=== PATIENT | female | born 1960 | race Caucasian/White ===

== ENCOUNTER → 2017-02-20 | Outpatient (REF) | payer OTHER ==
[~2017-02-20] MED LIST: ALEN70TA39; DULO1CAP3; ROBA500T PO; SYNT100T; VITA100067 PO; ZOFR4TAB3 PO; [UNRECOGNIZED DRUG - CODE]; [UNRECOGNIZED DRUG - OTHER] PO
== END ==
LOC: M LAB REF 16:43
PROVIDERS: ATTEND Nurse Practitioner Adult Health
DX: R10.11 Right upper quadrant pain (principal); R31.29 Other microscopic hematuria

== ENCOUNTER 2017-02-26 10:05 | Emergency (ER) | payer BC, OTHER ==
[~2017-02-26] VITALS: Ht 165.1 cm; Wt 56.4 kg
[2017-02-26 10:05] VITALS: BP 133/75
[2017-02-26] MEDS ORDERED: [UNRECOGNIZED DRUG - OTHER] PO (10:23)
[2017-02-26] MEDS ORDERED: VITA100067 PO (10:23)
[2017-02-26] MEDS ORDERED: ALEN70TA39 (10:23)
[2017-02-26] MEDS ORDERED: DULO1CAP3 (10:23)
[2017-02-26] MEDS ORDERED: SYNT100T (10:23)
[2017-02-26] MEDS ORDERED: [UNRECOGNIZED DRUG - CODE] (10:23)
[2017-02-26] MEDS ORDERED: ROBA500T PO (11:20)
[2017-02-26] MEDS ORDERED: ZOFR4TAB3 PO (11:20)
== END 2017-02-26 11:26 | disposition home or self-care (01) ==
LOC: M ED 10:05
DX: K58.0 Irritable bowel syndrome with diarrhea (principal); S29.012A Strain of muscle and tendon of back wall of thorax, initial encounter; X58.XXXA Exposure to other specified factors, initial encounter; Y92.89 Other specified places as the place of occurrence of the external cause; Y93.89 Activity, other specified; Y99.8 Other external cause status; E03.9 Hypothyroidism, unspecified; F17.210 Nicotine dependence, cigarettes, uncomplicated; Z87.442 Personal history of urinary calculi

== ENCOUNTER → 2018-03-08 | Outpatient (REF) | payer BC | LOC: M LAB REF 13:29 | DX: E03.9 Hypothyroidism, unspecified (principal); E83.52 Hypercalcemia | CPT/HCPCS: 83970 ==

== ENCOUNTER → 2018-04-25 | Outpatient (CLI) | payer BC | LOC: M WHC 13:43 | DX: Z13.820 Encounter for screening for osteoporosis (principal); Z12.31 Encounter for screening mammogram for malignant neoplasm of breast; R92.1 Mammographic calcification found on diagnostic imaging of breast | CPT/HCPCS: 77067 ==

== ENCOUNTER → 2019-06-02 | Outpatient (CLI) | payer BC, OTHER ==
[~2019-06-02] MED LIST changes: -ALEN70TA39; +ALEN70TA74; -DULO1CAP3; +DULO1CAP6; +ZOFR4TAB14 PO; -ZOFR4TAB3 PO
--- NOTE | 2019-06-02 09:25 | REPMRS ---
Patient History The patient states she has not had a clinical breast exam in over a year. Family history of prostate cancer at age 50 or over in father. No Hormone Replacement Therapy Digital Woman Screen Mammo: June 02, 2019 - Exam #: [id number] Bilateral CC and MLO view(s) were taken. Technologist: Missy Beckett, Technologist Prior study comparison: April 25, 2018, bilateral digital woman screen mammo performed at [facility]. March 23, 2017, digital woman screen mammo performed at [facility]. March 13, 2016, digital woman screen mammo performed at [facility]. FINDINGS: The breast tissue is heterogeneously dense. This may lower the sensitivity of mammography. There is a stable nodular opacity projecting in the upper outer quadrant on the left unchanged from multiple prior studies. There is a moderate amount of heterogeneously dense fibroglandular tissue which is fairly symmetric. There is no interval development of dominant mass, architectural distortion, or grouped microcalcification typical of malignancy. There has been no change in the appearance of the mammogram from the prior studies. 3-D tomosynthesis shows no additional findings. Assessment: BI-RADS/ACR category 2 mammogram. Benign Findings. Recommendation Routine screening mammogram of both breasts in 1 year (for women over age 40). This patient's Lifetime Breast Cancer RIsk is estimated at 7.5 %. This mammogram was interpreted with the aid of an FDA-approved computer-aided dectection system. Electronically Signed By: Ar Roca MD 06/02/19 0915
== END ==
LOC: M WHC 08:35
PROVIDERS: ATTEND Nurse Practitioner Adult Health
DX: Z12.31 Encounter for screening mammogram for malignant neoplasm of breast (principal); R92.2 Inconclusive mammogram; N63.0 Unspecified lump in unspecified breast

== ENCOUNTER → 2019-07-28 | Outpatient (CLI) | payer BC, OTHER ==
--- NOTE | 2019-08-20 14:54 | DEXA ---
AP SPINE L1 - L4 0.960 -1.9 -0.6 LT FEMUR TOTAL 0.964 -0.3 0.6 LT NECK 0.873 -1.2 0.1 RT FEMUR TOTAL 0.897 -0.9 0.1 RT NECK 0.824 -1.5 -0.3 TOTAL BODY TOTAL OTHER COMMENTS: There is low bone density of the spine and hips. The density of the spine has increased 5.5% since the initial exam on 07/20/2009. The spine density has increased 3.4% since the most recent exam on 04/25/2018. The density of the left hip has decreased 0.3% since the initial exam on 07/20/2009. The density of the left hip has increased 1.3% since the most recent exam on 04/25/2018. The density of the right hip has decreased 0.6% since the initial exam on 07/20/2009. The density of the right hip has increased 0.0% since the most recent exam on 04/25/2018. FOLLOW-UP: Recommendation for the next bone density exam: 2 years. BELLE
== END ==
LOC: M WHC 13:42
PROVIDERS: ATTEND Nurse Practitioner Adult Health
DX: M85.851 Other specified disorders of bone density and structure, right thigh (principal); M85.852 Other specified disorders of bone density and structure, left thigh; M85.88 Other specified disorders of bone density and structure, other site

== ENCOUNTER → 2020-10-28 | Outpatient (CLI) | payer BC ==
[~2020-10-28] MED LIST changes: -ALEN70TA74; +ALEN70TA82
--- NOTE | 2020-10-28 11:11 | REPMRS ---
Patient History The patient states she had a clinical breast exam in August 2020. Family history of prostate cancer at age 50 or over in father. No Hormone Replacement Therapy No breast complaints today Patient signed the MRS sheet 1st covid vaccine 08/15/20-right arm-Moderna 2nd covid vaccine 09/14/20-right arm Priors on PACS Patient Identification Verified Digital Woman Screen Mammo: October 28, 2020 - Exam #: [id number] Bilateral CC and MLO view(s) were taken. Technologist: Komal Hearn, Technologist Prior study comparison: June 02, 2019, bilateral digital woman screen mammo performed at [facility], [place]. April 25, 2018, bilateral digital woman screen mammo performed at [facility], [place]. FINDINGS: There are scattered fibroglandular densities. Screening. Digital screening (2D) mammography was performed bilaterally in the CC and MLO projections. Additionally, breast tomosynthesis (3D mammography) was performed bilaterally in the CC and MLO projections. Todays exam was compared to the prior exams. By history, the patient has no complaints of a palpable breast abnormality or other significant breast complaints. The breasts are unchanged in size and shape. There are no prema-soft tissue densities or spiculated masses. There is no internal architectural distortion. Once again, stable benign appearing calcifications are seen.There are no suspicious prema-calcific clusters. Skin thickening or nipple retraction is not present. IMPRESSION: BI-RADS Category 2- Benign Findings. There is no evidence of malignant alteration of the breasts. Followup examination recommended in one year. The Volpara volumetric breast density category is B, there are scattered areas of fibroglandular density. This mammogram was read with the assistance of [facility],an FDA approved computer aided detection system for mammography. The lifetime Tyrer-Cuzick score is 7.2 % Negative x-ray reports should not delay surgical consultation if a dominant or clinically suspicious mass is present. Not all breast cancers can be identified by mammography. Therefore, we recommend that you continue to perform regular breast self-examination and physical examination and then promptly contact your physician of any concerns or changes. Adenosis and dense breasts may obscure an underlying neoplasm. Assessment: BI-RADS/ACR category 2 mammogram. Benign Findings. Recommendation Routine screening mammogram of both breasts in 1 year. Electronically Signed By: Ashkan Solano DO 10/28/20 [id number]
== END ==
LOC: M WHC 09:56
PROVIDERS: ATTEND Nurse Practitioner Adult Health
DX: Z12.31 Encounter for screening mammogram for malignant neoplasm of breast (principal); Z80.42 Family history of malignant neoplasm of prostate; R92.1 Mammographic calcification found on diagnostic imaging of breast

== ENCOUNTER → 2020-11-10 | Outpatient (CLI) | payer BC ==
[~2020-11-10] MED LIST changes: +CLOB0.0526 TOP; +DULO1CAP6 PO; +ROSU10TA6 PO; +SYNT125T PO; +TRET0.0540 TOP
== END ==
LOC: M LABSMTC 11:44
PROVIDERS: ATTEND Anesthesiology
DX: Z01.812 Encounter for preprocedural laboratory examination (principal); Z20.822 Contact with and (suspected) exposure to COVID-19

== ENCOUNTER 2020-11-15 12:38 | Day surgery (SDC) | payer BC, OTHER ==
[~2020-11-15] VITALS: Ht 165.1 cm; Wt 58.2 kg
[~2020-11-15 12:38] MED LIST changes: +LIDOCAINE 2% 100MG/5ML SDV (FOR ANES.) As Ordered ONE; +NS 1,000 ML IV ONE; +propofoL 200 MG/20 ML VIAL As Ordered ONE
--- NOTE | 2020-11-15 15:00 | ROOR ---
Patient Name: Marcelle Mireles Procedure Date: 11/15/2020 2:38 PM Date of : 1960 Age: 60 Room: [facility] Gender: Female Note Status: Finalized Procedure: Total Colonoscopy to Cecum + ileoscopy Indications: Screening for colorectal malignant neoplasm Providers: Aguilar Santillan MD Referring MD: Brionna Hodgson NP Requesting Provider: Medicines: Monitored Anesthesia Care Complications: No immediate complications. Procedure: Pre-Anesthesia Assessment: - The heart rate, respiratory rate, oxygen saturations, blood pressure, adequacy of pulmonary ventilation, and response to care were monitored throughout the procedure. The Colonoscope was introduced through the anus and advanced to the terminal ileum, with identification of the appendiceal orifice and IC valve. The colonoscopy was performed without difficulty. The patient tolerated the procedure well. The quality of the bowel preparation was excellent. Findings: The perianal and digital rectal examinations were normal. Non-bleeding internal hemorrhoids were found during retroflexion. The hemorrhoids were small and Grade I (internal hemorrhoids that do not prolapse). Multiple small and large-mouthed diverticula were found in the recto-sigmoid colon, sigmoid colon and descending colon. The exam was otherwise without abnormality on direct and retroflexion views. The terminal ileum appeared normal. The exam was otherwise without abnormality on direct and retroflexion views. Impression: - Non-bleeding internal hemorrhoids. - Diverticulosis in the recto-sigmoid colon, in the sigmoid colon and in the descending colon. - The examination was otherwise normal on direct and retroflexion views. - The examined portion of the ileum was normal. - The examination was otherwise normal on direct and retroflexion views. - No specimens collected. - The exam was otherwise normal to the cecum. Recommendation: - Patient has a contact number available for emergencies. The signs and symptoms of potential delayed complications were discussed with the patient. Return to normal activities tomorrow. Written discharge instructions were provided to the patient. - High fiber diet. - Discharge patient to home. - Continue present medications. - Repeat colonoscopy in 10 years for screening purposes. - Return to referring physician. - The findings and recommendations were discussed with the patient's family. Procedure Code(s): --- Professional --- 43315, Colonoscopy, flexible; diagnostic, including collection of specimen(s) by brushing or washing, when performed (separate procedure) Diagnosis Code(s): --- Professional --- Z12.11, Encounter for screening for malignant neoplasm of colon K64.0, First degree hemorrhoids K57.30, Diverticulosis of large intestine without perforation or abscess without bleeding CPT copyright 2019 [employer]. All rights reserved. The codes documented in this report are preliminary and upon death surveys coder review may be revised to meet current compliance requirements. Aguilar Santillan MD Aguilar Santillan MD 11/15/2020 3:00:18 PM Electronically signed by Aguilar Santillan MD Number of Addenda: 0 Note Initiated On: 11/15/2020 2:38 PM Estimated Blood Loss: Estimated blood loss: none.
[2020-11-15 15:17] VITALS: BP 129/85
== END 2020-11-15 15:19 | disposition home or self-care (01) ==
LOC: M OPP 12:38
PROVIDERS: ATTEND Internal Medicine Gastroenterology
DX: Z12.11 Encounter for screening for malignant neoplasm of colon (principal); K64.0 First degree hemorrhoids; K57.30 Diverticulosis of large intestine without perforation or abscess without bleeding; E78.5 Hyperlipidemia, unspecified; E03.9 Hypothyroidism, unspecified; K58.9 Irritable bowel syndrome, unspecified; F17.210 Nicotine dependence, cigarettes, uncomplicated; Z79.899 Other long term (current) drug therapy

== ENCOUNTER → 2021-11-08 | Outpatient (CLI) | payer BC, OTHER ==
[~2021-11-08] MED LIST changes: -LIDOCAINE 2% 100MG/5ML SDV (FOR ANES.) As Ordered ONE; -NS 1,000 ML IV ONE; +[UNRECOGNIZED DRUG - CODE]; -[UNRECOGNIZED DRUG - CODE]; -propofoL 200 MG/20 ML VIAL As Ordered ONE
== END ==
LOC: M WHC 07:55
PROVIDERS: ATTEND Nurse Practitioner Adult Health
DX: Z12.31 Encounter for screening mammogram for malignant neoplasm of breast (principal); M85.88 Other specified disorders of bone density and structure, other site; Z80.42 Family history of malignant neoplasm of prostate

== ENCOUNTER → 2022-11-22 | Outpatient (CLI) | payer BC, OTHER | LOC: M WHC 07:53 | PROVIDERS: ATTEND Nurse Practitioner Adult Health | DX: Z12.31 Encounter for screening mammogram for malignant neoplasm of breast (principal) ==

== ENCOUNTER → 2024-01-10 | Outpatient (CLI) | payer MEDICARE, BC ==
[~2024-01-10] MED LIST changes: +MINO1TAB; -ROSU10TA6 PO; +ROSU10TA61 PO; -[UNRECOGNIZED DRUG - CODE]
== END ==
LOC: M WHC 14:03
PROVIDERS: ATTEND Nurse Practitioner Adult Health
DX: Z12.31 Encounter for screening mammogram for malignant neoplasm of breast (principal)

== ENCOUNTER → 2024-09-23 | Outpatient (CLI) | payer MEDICARE, BC | LOC: M WUC 11:00 | PROVIDERS: ATTEND Nurse Practitioner Adult Health | DX: M11.262 Other chondrocalcinosis, left knee (principal) ==

== ENCOUNTER → 2024-09-23 | Outpatient (CLI) | payer MEDICARE, BC | LOC: M RAD 10:19 | PROVIDERS: ATTEND Nurse Practitioner Adult Health | DX: F17.210 Nicotine dependence, cigarettes, uncomplicated (principal); R91.8 Other nonspecific abnormal finding of lung field; N20.0 Calculus of kidney; M11.262 Other chondrocalcinosis, left knee ==

== ENCOUNTER → 2024-10-07 | Outpatient (CLI) | payer MEDICARE, BC | LOC: M RAD 10:31 | PROVIDERS: ATTEND Nurse Practitioner Adult Health | DX: N20.0 Calculus of kidney (principal) ==

== ENCOUNTER → 2025-01-12 | Outpatient (CLI) | payer MEDICARE, BC | LOC: M WHC 10:46 | PROVIDERS: ATTEND Nurse Practitioner Adult Health | DX: Z12.31 Encounter for screening mammogram for malignant neoplasm of breast (principal); M85.89 Other specified disorders of bone density and structure, multiple sites; R92.333 Mammographic heterogeneous density, bilateral breasts ==